=== PATIENT | female | born 2000 | race Two or more races ===

== ENCOUNTER 2021-09-14 11:39 | Emergency (ER) | payer BC ==
[~2021-09-14] VITALS: Ht 160 cm; Wt 47.5 kg
[2021-09-14 13:22] LABS: BILIRUBIN,URINE NEGATIVE (NEG); CLARITY,URINE CLEAR; COLOR,URINE YELLOW; NITRITE,URINE NEGATIVE (NEG); PH,URINE 7.5 (<5.0-8.0); PROTEIN,URINE NEGATIVE (NEG-TRACE); UROBILINOGEN,URINE 0.2 mg/dL (0.2 mg/dL)
[2021-09-14 13:27] LABS: BACTERIA,URINE FEW /HPF (0-FEW); RBC,URINE 0 /HPF (0-2)
--- NOTE | 2021-09-14 13:41 | PHYS DOC ---
Past Medical History Additional Past Medical Histor: ANXIETY Past Surgical History: No Surgical History General Adult EDM: Chief Complaint: ABDOMINAL PAIN HPI: HPI: Patient is a 21-year-old female that presents today with upper abdominal pain for 4 days. Patient states for last 4 days she has had upper abdominal pain with nausea and vomiting, she states she is unable to keep fluids down or food. Patient states her last normal menstrual period was August 112020, she does not think she is , patient denies vaginal bleeding or vaginal discharge at this time. Patient does states she had a stool she said it was hard which is unusual for her. Review of Systems: Review of Systems: Constitutional: Denies fever or chills. [] Eyes: Denies change in visual acuity. [] HENT: Denies nasal congestion or sore throat. [] Respiratory: Denies cough or shortness of breath. [] Cardiovascular: Denies chest pain or edema. [] GI: abdominal pain, nausea, vomiting, and constipation denies bloody stools or diarrhea. [] : Denies dysuria. [] Musculoskeletal: Denies back pain or joint pain. [] Integument: Denies rash. [] Neurologic: Denies headache, focal weakness or sensory changes. [] Endocrine: Denies polyuria or polydipsia. [] Lymphatic: Denies swollen glands. [] Psychiatric: Denies depression or anxiety. [] Heart Score: C/O Chest Pain: N/A Risk Factors: Risk Factors: DM, Current or recent (<one month) smoker, HTN, HLP, family history of CAD, obesity. Risk Scores: Score 0 - 3: 2.5% MACE over next 6 weeks - Discharge Home Score 4 - 6: 20.3% MACE over next 6 weeks - Admit for Clinical Observation Score 7 - 10: 72.7% MACE over next 6 weeks - Early Invasive Strategies Allergies: Allergies: Allergies Coded Allergies Type Severity Reaction Last Updated Verified No Known Drug Allergies 09/14/21 No Physical Exam: PE: Constitutional: Well developed, well nourished, no acute distress, non-toxic appearance. [] HENT: Normocephalic, atraumatic, bilateral external ears normal, oropharynx moist, no oral exudates, nose normal. [] Eyes: PERRLA, EOMI, conjunctiva normal, no discharge. [] Neck: Normal range of motion, no tenderness, supple, no stridor. [] Cardiovascular:Heart rate regular rhythm, no murmur [] Lungs & Thorax: Bilateral breath sounds clear to auscultation [] Abdomen: soft, tender in the epigastric region, hypoactive bowel sounds, [] Skin: Warm, dry, no erythema, no rash. [] Back: No tenderness, no CVA tenderness. [] Extremities: No tenderness, no cyanosis, no clubbing, ROM intact, no edema. [] Neurologic: Alert and oriented X 3, normal motor function, normal sensory function, no focal deficits noted. [] Psychologic: Affect normal, judgement normal, mood normal. [] Current Patient Data: Labs: Laboratory Tests Test 09/14/21 12:30 09/14/21 13:44 Urine Collection Type Unknown Urine Color Yellow Urine Clarity Clear Urine pH 7.5 Urine Specific [place] 1.020 Urine Protein Negative mg/dL Urine Glucose (UA) Negative mg/dL Urine Ketones (Stick) Trace mg/dL Urine Blood Negative Urine Nitrite Negative Urine Bilirubin Negative Urine Urobilinogen Dipstick 0.2 mg/dL Urine Leukocyte Esterase Trace Urine RBC 0 /HPF Urine WBC 1-4 /HPF Urine Squamous Epithelial Cells Mod /LPF Urine Transitional Epithelial Cells Occ /LPF Urine Bacteria Few /HPF Urine Mucus Mod /LPF Bedside Urine HCG, Qualitative Hcg negative White Blood Count 8.0 x10^3/uL Red Blood Count 3.97 x10^6/uL Hemoglobin 12.4 g/dL Hematocrit 36.4 % Mean Corpuscular Volume 92 fL Mean Corpuscular Hemoglobin 31 pg Mean Corpuscular Hemoglobin Concent 34 g/dL Red Cell Distribution Width 12.4 % Platelet Count 224 x10^3/uL Neutrophils (%) (Auto) 77 % Lymphocytes (%) (Auto) 19 % Monocytes (%) (Auto) 4 % Eosinophils (%) (Auto) 0 % Basophils (%) (Auto) 1 % Neutrophils # (Auto) 6.1 x10^3/uL Lymphocytes # (Auto) 1.5 x10^3/uL Monocytes # (Auto) 0.3 x10^3/uL Eosinophils # (Auto) 0.0 x10^3/uL Basophils # (Auto) 0.1 x10^3/uL Sodium Level 140 mmol/L Potassium Level 3.4 mmol/L Chloride Level 103 mmol/L Carbon Dioxide Level 27 mmol/L Anion Gap 10 Blood Urea Nitrogen 10 mg/dL Creatinine 0.5 mg/dL Estimated GFR (Cockcroft-Gault) 152.9 BUN/Creatinine Ratio 20 Glucose Level 82 mg/dL Calcium Level 8.7 mg/dL Total Bilirubin 0.3 mg/dL Aspartate Amino Transf (AST/SGOT) 15 U/L Alanine Aminotransferase (ALT/SGPT) 19 U/L Alkaline Phosphatase 64 U/L Total Protein 7.4 g/dL Albumin 4.1 g/dL Albumin/Globulin Ratio 1.2 Lipase 143 U/L Current Medications Medications (Trade) Dose Ordered Sig/Waylon Route PRN Reason Start Time Stop Time Status Last Admin Dose Admin Sodium Chloride 1,000 ml @ 999 mls/hr 1X ONCE IV 09/14/21 13:45 09/14/21 14:45 Ondansetron HCl (Zofran) 4 mg 1X ONCE IVP 09/14/21 13:45 09/14/21 13:46 DC Laboratory Tests Test 09/14/21 12:30 Urine Collection Type Unknown Urine Color Yellow Urine Clarity Clear Urine pH 7.5 (<5.0-8.0) Urine Specific [place] 1.020 (1.000-1.030) Urine Protein Negative mg/dL (NEG-TRACE) Urine Glucose (UA) Negative mg/dL (NEG) Urine Ketones (Stick) Trace mg/dL (NEG) Urine Blood Negative (NEG) Urine Nitrite Negative (NEG) Urine Bilirubin Negative (NEG) Urine Urobilinogen Dipstick 0.2 mg/dL (0.2 mg/dL) Urine Leukocyte Esterase Trace (NEG) Urine RBC 0 /HPF (0-2) Urine WBC 1-4 /HPF (0-4) Urine Squamous Epithelial Cells Mod /LPF Urine Transitional Epithelial Cells Occ /LPF Urine Bacteria Few /HPF (0-FEW) Urine Mucus Mod /LPF POC Urine HCG, Qualitative Hcg negative (Negative) Vital Signs: Vital Signs Date Time Temp Pulse Resp B/P (MAP) Pulse Ox O2 Delivery O2 Flow Rate FiO2 09/14/21 12:40 98.5 74 20 121/65 (83) 100 Room Air 98.5 Vital Signs Date Time Temp Pulse Resp B/P (MAP) Pulse Ox O2 Delivery O2 Flow Rate FiO2 09/14/21 12:40 98.5 74 20 121/65 (83) 100 Room Air 98.5 EKG: EKG: [] Radiology/Procedures: Radiology/Procedures: REASON: upper abdominal pain PROCEDURE: ABDOMEN LTD EXAM: ULTRASOUND ABDOMEN LIMITED CLINICAL HISTORY: upper abdominal pain COMPARISON: None available. TECHNIQUE: Limited ultrasound examination of the right upper quadrant of the abdomen was performed. FINDINGS: The head and body of the pancreas are unremarkable. The tail is obscured by intestinal gas.. Liver: 11 cm in length. The hepatic margin is smooth and the hepatic echogenicity is normal. There are no focal liver lesions. Flow seen within the portal veins. Biliary: No cholelithiasis. No wall thickening or pericholecystic fluid. There is no pain with direct transducer pressure over the gallbladder. Common bile duct measures 0.2 cm. Right Kidney: 10.9 cm in length. Normal renal cortical echotexture and thickness. No focal renal lesion, shadowing renal calculus or hydronephrosis. Visualized portions of the abdominal aorta and inferior vena cava are unremar kable. There is no free fluid in the subhepatic space. IMPRESSION: 1. Normal sonographic survey of the right upper quadrant. Electronically signed by: Sonu Dunham MD (09/14/2021 2:05 PM) [id number][] REASON: constipation PROCEDURE: KUB EXAM: Supine AP view of the abdomen DATE: 09/14/2021 1:48 PM INDICATION: Reason: constipation / Spl. Instructions: / History: COMPARISON: No Prior FINDINGS: No abnormal small or large bowel dilatation. Moderate colonic stool content. No abnormal soft tissue mass effect. No suspicious calcifications are seen. Evaluation for free intraperitoneal gas is limited on this supine exam. IMPRESSION: 1. No evidence for bowel obstruction. 2. Moderate colonic stool content, particularly the right colon. Electronically signed by: Sonu Dunham MD (09/14/2021 2:03 PM) [email or web address] Course & Med Decision Making: Course & Med Decision Making Pertinent Labs and Imaging studies reviewed. (See chart for details) 1420 spoke to patient about lab results and radiology results, stating that she has a lot of stool in her colon which can be causing some of her nausea. Patient also indicated that she is a little bit anxious today and has been over the last couple of weeks. Patient is encouraged to follow-up with her primary care physician and/or clinic with the brochure provided for treatment of her anxiety. We will give patient Pepcid IV here in the department and then will send a prescription for Zofran and Pepcid to her pharmacy. Patient should stick with clear liquids over the next 24 to 48 hours then advance as tolerated. Patient is agreeable to the plan of care, patient will be given a list of clinics and [facility] health care providers for follow-up in the next 5 to 7 days Wilfredo Disclaimer: Wilfredo Disclaimer: This electronic medical record was generated, in whole or in part, using a voice recognition dictation system. Departure Departure Impression: Primary Impression: Abdominal pain Qualified Codes: R10.10 - Upper abdominal pain, unspecified Disposition: HOME / SELF CARE / HOMELESS Condition: STABLE Referrals: LEANDRO VILLALPANDO MD Patient Instructions: Abdominal Pain, Diet for Gastroesophageal Reflux Disease, Adult Additional Instructions: Follow-up with Dr. Villalpando the physician in the referral section he does speak Croatian, follow-up with him in the next 5 to 7 days Zofran 1 tablet every 6 hours as needed for nausea, after 30 minutes of taking Zofran and then try clear liquids Pepcid take 1 tablet twice daily for the next 2 weeks Increase by mouth fluids and foods high in fiber to help with constipation Return to the emergency department for increased pain, nausea and vomiting, or inability to keep by mouth fluids Scripts Ondansetron Hcl (ZOFRAN) 4 Mg Tablet 1 TAB PO Q6HRS, #20 TAB Prov: VIVI NOONAN PHOTOLITH OPERATOR 09/14/21 Famotidine (PEPCID) 20 Mg Tablet 20 MG PO BID for 14 Days, #28 TAB Prov: VIVI NOONAN PHOTOLITH OPERATOR 09/14/21 VIVI NOONAN PHOTOLITH OPERATOR Sep 14, 2021 13:41
[2021-09-14] MEDS ORDERED: ONDANSETRON PF 4 MG/2 ML VIAL. IVP ONE (13:45)
[2021-09-14] MEDS ORDERED: IV NORMAL SALINE 1000ML BAG 1,000 ML IV ONE (13:45)
[2021-09-14 13:51] LABS: BASO # 0.1 x10^3/uL (0.0-0.2); BASO % 1 % (0-3); EOS % 0 % (0-3); HEMATOCRIT 36.4 % (36.0-47.0); HEMOGLOBIN 12.4 g/dL (12.0-15.5); LYMPH # 1.5 x10^3/uL (1.0-4.8); LYMPH % 19 % (24-48); MEAN CORPUSCULAR HEMOGLOBIN 31 pg (25-35); MEAN CORPUSCULAR HGB CONC 34 g/dL (31-37); MEAN CORPUSCULAR VOLUME 92 fL (79-100); MONO # 0.3 x10^3/uL (0.0-1.1); MONO % 4 % (0-9); NEUT # 6.1 x10^3/uL (1.8-7.7); NEUT % 77 % (31-73); PLATELET COUNT 224 x10^3/uL (140-400); RED BLOOD COUNT 3.97 x10^6/uL (3.50-5.40); RED CELL DISTRIBUTION WIDTH 12.4 % (11.5-14.5)
[2021-09-14 14:04] LABS: CALCIUM 8.7 mg/dL (8.5-10.1); CREATININE 0.5 mg/dL (0.6-1.0); GFR 152.9; POTASSIUM 3.4 mmol/L (3.5-5.1)
--- NOTE | 2021-09-14 14:05 | RAD ---
EXAM: Supine AP view of the abdomen DATE: 09/14/2021 1:48 PM INDICATION: Reason: constipation / Spl. Instructions: / History: COMPARISON: No Prior FINDINGS: No abnormal small or large bowel dilatation. Moderate colonic stool content. No abnormal soft tissu e mass effect. No suspicious calcifications are seen. Evaluation for free intraperitoneal gas is li mited on this supine exam. IMPRESSION: 1. No evidence for bowel obstruction. 2. Moderate colonic stool content, particularly the right colon. Electronically signed by: Sonu Dunham MD (09/14/2021 2:03 PM) [email or web address]
--- NOTE | 2021-09-14 14:07 | RAD ---
EXAM: ULTRASOUND ABDOMEN LIMITED CLINICAL HISTORY: upper abdominal pain COMPARISON: None available. TECHNIQUE: Limited ultrasound examination of the right upper quadrant of the abdomen was performed. FINDINGS: The head and body of the pancreas are unremarkable. The tail is obscured by intestinal gas.. Liver: 11 cm in length. The hepatic margin is smooth and the hepatic echogenicity is normal. There are no focal liver lesions. Flow seen within the portal veins. Biliary: No cholelithiasis. No wall thickening or pericholecystic fluid. There is no pain with dire ct transducer pressure over the gallbladder. Common bile duct measures 0.2 cm. Right Kidney: 10.9 cm in length. Normal renal cortical echotexture and thickness. No focal renal lesi on, shadowing renal calculus or hydronephrosis. Visualized portions of the abdominal aorta and inferior vena cava are unremarkable. There is no free fluid in the subhepatic space. IMPRESSION: 1. Normal sonographic survey of the right upper quadrant. Electronically signed by: Sonu Dunham MD (09/14/2021 2:05 PM) [email or web address]
[2021-09-14 14:10] LABS: ALBUMIN 4.1 g/dL (3.4-5.0); ALBUMIN/GLOBULIN RATIO 1.2 (1.0-1.7); TOTAL BILIRUBIN 0.3 mg/dL (0.2-1.0); TOTAL PROTEIN 7.4 g/dL (6.4-8.2)
[2021-09-14] MEDS ORDERED: FAMOTIDINE 20 MG/2 ML VIAL IVP ONE (14:30)
[2021-09-14] MEDS ORDERED: FAMO-63 PO (14:35)
[2021-09-14] MEDS ORDERED: ONDA4TAB7 PO (14:35)
[2021-09-15 07:39] VITALS: BP 128/58
== END 2021-09-14 15:20 | disposition home or self-care (01) ==
LOC: ER 11:39
DX: R10.13 Epigastric pain (principal); R11.2 Nausea with vomiting, unspecified; K59.00 Constipation, unspecified
CPT/HCPCS: 36415; 74018; 76705; 80053; 81001; 81025; 83690; 85025; 87086; 96374; 96375; 99285; J2405; J3490; J7030

== ENCOUNTER 2021-09-20 16:56 | Emergency (ER) | payer BC ==
[~2021-09-20] VITALS: Ht 160 cm; Wt 45.4 kg
[~2021-09-20 16:56] MED LIST: FAMO-63 PO; ONDA4TAB7 PO
[2021-09-20 19:11] LABS: BILIRUBIN,URINE NEGATIVE (NEG); CLARITY,URINE CLEAR; COLOR,URINE YELLOW; NITRITE,URINE NEGATIVE (NEG); PH,URINE 7.5 (<5.0-8.0); PROTEIN,URINE NEGATIVE (NEG-TRACE); UROBILINOGEN,URINE 0.2 mg/dL (0.2 mg/dL)
[2021-09-20 19:13] LABS: U PREG PATIENT NEGATIVE (NEG)
[2021-09-20] MEDS ORDERED: ONDANSETRON PF 4 MG/2 ML VIAL. IVP ONE (19:15)
[2021-09-20] MEDS ORDERED: LIDO:MAALOX 1:1 20 ML SINGLE DOSE. PO PRN (19:15)
[2021-09-20 19:17] LABS: BACTERIA,URINE FEW /HPF (0-FEW); RBC,URINE 0 /HPF (0-2)
[2021-09-20 19:22] LABS: BASO % 1 % (0-3); EOS # 0.1 x10^3/uL (0.0-0.7); EOS % 1 % (0-3); HEMATOCRIT 35.1 % (36.0-47.0); HEMOGLOBIN 11.7 g/dL (12.0-15.5); LYMPH # 2.1 x10^3/uL (1.0-4.8); LYMPH % 30 % (24-48); MEAN CORPUSCULAR HEMOGLOBIN 31 pg (25-35); MEAN CORPUSCULAR HGB CONC 33 g/dL (31-37); MEAN CORPUSCULAR VOLUME 93 fL (79-100); MONO # 0.4 x10^3/uL (0.0-1.1); MONO % 5 % (0-9); NEUT # 4.6 x10^3/uL (1.8-7.7); NEUT % 64 % (31-73); PLATELET COUNT 237 x10^3/uL (140-400); RED BLOOD COUNT 3.78 x10^6/uL (3.50-5.40); RED CELL DISTRIBUTION WIDTH 12.7 % (11.5-14.5); WHITE BLOOD COUNT 7.2 x10^3/uL (4.0-11.0)
--- NOTE | 2021-09-20 19:34 | PHYS DOC ---
Past Medical History Additional Past Medical Histor: ANXIETY Past Surgical History: No Surgical History Smoking Status: Never Smoker Alcohol Use: None General Adult EDM: Chief Complaint: NAUSEA/VOMITING/DIARRHEA HPI: HPI: Patient is a 21 year old female who presents with abdominal pain and nausea. Patient states the pain is in the center of her belly above her bellybutton. Dull aching. Constant since onset more than a week ago. She states that it was 1 week, but she was seen on 09/14, and was complaining of at least 4 days of pain at that time. Pain does not radiate. No alleviating or aggravating factors. Nausea is worse with food intake, and states that she has hardly been able to eat anything. She has vomited 3 times today. Nonbloody. Nonbilious. Denies fevers or chills. Normal BM earlier this morning. No constipation or diarrhea. No bloody stools. No dysuria, urgency, frequency. Denies flank pain. She is sexually active. Denies vaginal discharge. States that her latest period started on 09/17. Normal flow. No lower abd discomfort, cramping. Was seen on 09/14 and had negative RUQ, reassuring KUB, neg preg test, neg UA, and essentially normal CBC, CMP, and lipase. Review of Systems: Review of Systems: Constitutional: Denies fever or chills. [] Eyes: Denies change in visual acuity. [] HENT: Denies nasal congestion or sore throat. [] Respiratory: Denies cough or shortness of breath. [] Cardiovascular: Denies chest pain or edema. [] GI: Reports abdominal pain, nausea, vomiting. Denies bloody stools or diarrhea. [] : Denies dysuria. [] Musculoskeletal: Denies back pain or joint pain. [] Integument: Denies rash. [] Neurologic: Denies headache, focal weakness or sensory changes. [] Endocrine: Denies polyuria or polydipsia. [] Lymphatic: Denies swollen glands. [] Psychiatric: Denies depression or anxiety. [] Heart Score: C/O Chest Pain: No Risk Factors: Risk Factors: DM, Current or recent (<one month) smoker, HTN, HLP, family history of CAD, obesity. Risk Scores: Score 0 - 3: 2.5% MACE over next 6 weeks - Discharge Home Score 4 - 6: 20.3% MACE over next 6 weeks - Admit for Clinical Observation Score 7 - 10: 72.7% MACE over next 6 weeks - Early Invasive Strategies Current Medications: Current Medications Medications (Trade) Dose Ordered Sig/Waylon Start Time Stop Time Status Last Admin Dose Admin Multi-Ingredient Mouthwash/Gargle (Gi Cocktail) 20 ml PRN QID PRN 09/20/21 19:15 Ondansetron HCl (Zofran) 4 mg 1X ONCE 09/20/21 19:15 09/20/21 19:16 DC Allergies: Allergies: Allergies Coded Allergies Type Severity Reaction Last Updated Verified No Known Drug Allergies 09/14/21 No Physical Exam: PE: Constitutional: Well developed, well nourished, no acute distress, non-toxic appearance. [] HENT: Normocephalic, atraumatic, bilateral external ears normal, oropharynx moist, no oral exudates, nose normal. [] Eyes: PERRLA, EOMI, conjunctiva normal, no discharge. [] Neck: Normal range of motion, no tenderness, supple, no stridor. [] Cardiovascular:Heart rate regular rhythm, no murmur [] Lungs & Thorax: Bilateral breath sounds clear to auscultation [] Abdomen: Soft, nondistended, no rigidity, no rebound, no guarding. Mild epigast jeny tenderness to palpation. Skin: Warm, dry, no erythema, no rash. [] Back: No tenderness, no CVA tenderness. [] Extremities: No tenderness, no cyanosis, no clubbing, ROM intact, no edema. [] Neurologic: Alert and oriented X 3, normal motor function, normal sensory function, no focal deficits noted. [] Psychologic: Affect normal, judgement normal, mood normal. [] Current Patient Data: Labs: Laboratory Tests Test 09/20/21 18:44 09/20/21 19:16 Urine Collection Type Unknown Urine Color Yellow Urine Clarity Clear Urine pH 7.5 (<5.0-8.0) Urine Specific [place] 1.020 (1.000-1.030) Urine Protein Negative mg/dL (NEG-TRACE) Urine Glucose (UA) Negative mg/dL (NEG) Urine Ketones (Stick) Negative mg/dL (NEG) Urine Blood Moderate (NEG) Urine Nitrite Negative (NEG) Urine Bilirubin Negative (NEG) Urine Urobilinogen Dipstick 0.2 mg/dL (0.2 mg/dL) Urine Leukocyte Esterase Small (NEG) Urine RBC 0 /HPF (0-2) Urine WBC 1-4 /HPF (0-4) Urine Squamous Epithelial Cells Few /LPF Urine Bacteria Few /HPF (0-FEW) Urine Mucus Mod /LPF Urine Test Negative (NEG) White Blood Count 7.2 x10^3/uL (4.0-11.0) Red Blood Count 3.78 x10^6/uL (3.50-5.40) Hemoglobin 11.7 g/dL (12.0-15.5) L Hematocrit 35.1 % (36.0-47.0) L Mean Corpuscular Volume 93 fL (79-100) Mean Corpuscular Hemoglobin 31 pg (25-35) Mean Corpuscular Hemoglobin Concent 33 g/dL (31-37) Red Cell Distribution Width 12.7 % (11.5-14.5) Platelet Count 237 x10^3/uL (140-400) Neutrophils (%) (Auto) 64 % (31-73) Lymphocytes (%) (Auto) 30 % (24-48) Monocytes (%) (Auto) 5 % (0-9) Eosinophils (%) (Auto) 1 % (0-3) Basophils (%) (Auto) 1 % (0-3) Neutrophils # (Auto) 4.6 x10^3/uL (1.8-7.7) Lymphocytes # (Auto) 2.1 x10^3/uL (1.0-4.8) Monocytes # (Auto) 0.4 x10^3/uL (0.0-1.1) Eosinophils # (Auto) 0.1 x10^3/uL (0.0-0.7) Basophils # (Auto) 0.0 x10^3/uL (0.0-0.2) Laboratory Tests 09/20/21 19:16 Vital Signs: Vital Signs Date Time Temp Pulse Resp B/P (MAP) Pulse Ox O2 Delivery O2 Flow Rate FiO2 09/20/21 17:02 98.0 64 18 110/64 (79) 100 Room Air 98.0 EKG: EKG: [] Radiology/Procedures: Radiology/Procedures: [] Impression: [facility] [address] [place] [address] IMAGING REPORT Signed PATIENT: ZANE SIERRA ACCOUNT: [id number] : 2000 LOCATION: ER AGE: 21 SEX: F EXAM STATUS: REG ER ORD. PHYSICIAN: VELMA GRIER MD REASON: epigastric pain PROCEDURE: CT ABD PELV W/ IV CONTRST ONLY EXAMINATION: CT ABDOMEN+PELVIS W CLINICAL HISTORY: Epigastric pain TECHNIQUE: CT of the abdomen and pelvis was performed using standard technique, scanning from just above the dome of the diaphragm to the symphysis pubis following administration of intravenous contrast. CT Dose Reduction Employed: One or more of the following individualized dose reduction techniques were utilized for this examination: 1. Automated exposure control 2. Adjustment of the mA and/or kV according to patient size 3. Use of iterative reconstruction technique. COMPARISON: None FINDINGS: Visualized heart and lungs unremarkable. Liver, gallbladder, pancreas, spleen, adrenal glands, and kidneys unremarkable. Minimally filled urinary bladder. Uterus within normal limits for patient's age. Bilateral multifollicular ovaries with dominant follicle in the right. Mild fluid in the rectouterine fossa, possibly physiologic. No bowel dilation or definite wall thickening. Appendix not definitively visualized. Nondistended stomach suboptimally evaluated. No abdominal aortic or iliac artery aneurysm. No evidence of acute osseous abnormality. IMPRESSION: No evidence of acute abdominopelvic abnormality. Appendix not definitively visualized. Electronically signed by: Preston Jordan DO (09/20/2021 9:26 PM) [facility] DICTATED and SIGNED BY: PRESTON JORDAN DO DATE: 09/20/21 [id number] 0 Course & Med Decision Making: Course & Med Decision Making Pertinent Labs and Imaging studies reviewed. (See chart for details) Patient a 21-year-old female who presents with more than a week of upper abdominal pain, nausea, vomiting. Was seen on 09/14 and had unremarkable RUQ US, KUB, CBC, CMP, lipase, UA, urine test discharged after that work-up. States that she has had persistent symptoms since then without relief. Exam is largely benign, repeated labs and urine studies without significant change. Reevaluated the patient after GI cocktail and viscous lidocaine, without improvement. Given the repeat visit for unrelenting pain, CT abdomen/pelvis was ordered, and did not show any significant abdominal pelvic pathology. Unclear what the exact cause of her discomfort is. May be gastritis. Was started on famotidine previously and will give Rx for Zofran and PPI. Dragon Disclaimer: Dragon Disclaimer: This electronic medical record was generated, in whole or in part, using a voice recognition dictation system. Departure Departure Impression: Primary Impression: Upper abdominal pain Disposition: HOME / SELF CARE / HOMELESS Condition: STABLE Referrals: NO PCP (PCP) Patient Instructions: Gastritis, Adult Scripts Ondansetron Hcl (ZOFRAN) 4 Mg Tablet 1 TAB PO PRN Q6-8HRS for nausea, #20 TAB 0 Refills Prov: VELMA GRIER MD 09/20/21 Omeprazole (OMEPRAZOLE) 40 Mg Capsule. 1 CAP PO DAILY, #30 CAP 3 Refills Prov: VELMA GRIER MD 09/20/21 VELMA GRIER MD Sep 20, 2021 19:34
[2021-09-20 19:40] LABS: CALCIUM 8.5 mg/dL (8.5-10.1); CREATININE 0.6 mg/dL (0.6-1.0); GFR 123.9; POTASSIUM 3.6 mmol/L (3.5-5.1)
[2021-09-20 19:46] LABS: ALBUMIN 4.1 g/dL (3.4-5.0); ALBUMIN/GLOBULIN RATIO 1.3 (1.0-1.7); TOTAL BILIRUBIN 0.2 mg/dL (0.2-1.0); TOTAL PROTEIN 7.3 g/dL (6.4-8.2)
[2021-09-20 20:31] VITALS: BP 108/57
[2021-09-20] MEDS ORDERED: CONTRAST GIVEN. MC PRN (20:45)
[2021-09-20] MEDS ORDERED: IOHEXOL 300 MG/ML 100ML VIAL. IV ONE (20:45)
--- NOTE | 2021-09-20 21:29 | RAD ---
EXAMINATION: CT ABDOMEN+PELVIS W CLINICAL HISTORY: Epigastric pain TECHNIQUE: CT of the abdomen and pelvis was performed using standard technique, scanning from just ab ove the dome of the diaphragm to the symphysis pubis following administration of intravenous contrast . CT Dose Reduction Employed: One or more of the following individualized dose reduction techniques wer e utilized for this examination: 1. Automated exposure control 2. Adjustment of the mA and/or kV ac cording to patient size 3. Use of iterative reconstruction technique. COMPARISON: None FINDINGS: Visualized heart and lungs unremarkable. Liver, gallbladder, pancreas, spleen, adrenal glands, and kidneys unremarkable. Minimally filled urinary bladder. Uterus within normal limits for patient's age. Bilateral multifolli cular ovaries with dominant follicle in the right. Mild fluid in the rectouterine fossa, possibly phy siologic. No bowel dilation or definite wall thickening. Appendix not definitively visualized. Nondistended sto mach suboptimally evaluated. No abdominal aortic or iliac artery aneurysm. No evidence of acute osseous abnormality. IMPRESSION: No evidence of acute abdominopelvic abnormality. Appendix not definitively visualized. Electronically signed by: Preston Staples DO (09/20/2021 9:26 PM) [facility]
[2021-09-20] MEDS ORDERED: ONDA4TAB7 PO (21:56)
[2021-09-20] MEDS ORDERED: OMEP40CA7 PO (21:56)
== END 2021-09-20 22:40 | disposition home or self-care (01) ==
LOC: ER 16:56
DX: R10.13 Epigastric pain (principal); R11.2 Nausea with vomiting, unspecified
CPT/HCPCS: 36415; 74177; 80053; 81001; 81025; 83690; 85025; 87086; 96374; 99285; J2405; Q9967